=== PATIENT | female | born 1995 | race Caucasian/White ===

== ENCOUNTER 2021-06-26 06:09 | Emergency (ER) | payer OTHER ==
[2021-06-26 06:19] VITALS: BP 133/84
[2021-06-26] MEDS ORDERED: CLINDAMYCIN 150 MG CAPSULE PO STA (07:15)
--- NOTE | 2021-06-26 07:19 | ED Physician Documentation ---
PD HPI HEENT - Stated complaint Stated Complaint: TOOTH ACHE - Chief complaint Chief Complaint: Heent - History obtained from History obtained from: Patient - Additional information Additional information: Patient comes emergency department for chief complaint of dental pain for the last 3 days. Patient states that she has a tooth that has a crown and she thinks that this is the source of the pain. She is also noticed right maxillary facial swelling. No drainage into her mouth. She states the tooth in question is one of her maxillary molars on the right. She has noticed some gingival pain and swelling, also. She has been taking Tylenol at home but this has not been helping. Her last dose was at 2:00 this morning because she was having trouble sleeping, and she states that she took 2000 mg. She has not taken that large of a dose of any other time. No other complaints at this time. Review of Systems Ten Systems: 10 systems reviewed and negative Constitutional: reports: Reviewed and negative Eyes: reports: Reviewed and negative Ears: reports: Reviewed and negative Nose: reports: Reviewed and negative Throat: reports: Dental pain / toothache Cardiac: reports: Reviewed and negative Respiratory: reports: Reviewed and negative GI: reports: Reviewed and negative : reports: Reviewed and negative Skin: reports: Reviewed and negative Musculoskeletal: reports: Reviewed and negative Neurologic: reports: Reviewed and negative Psychiatric: reports: Reviewed and negative Endocrine: reports: Reviewed and negative Immunocompromised: reports: Reviewed and negative PD PAST MEDICAL HISTORY - Present Medications Home Medications: Ambulatory Orders Medication Instructions Recorded Confirmed HYDROcod/ACETAM 5/325 [[place] 5/325] 1 - 2 tablet PO Q6H PRN #14 tablet 06/26/21 clindamycin HCL [Clindamycin HCl] 300 mg PO Q6H #40 cap 06/26/21 - Allergies Allergies/Adverse Reactions: Allergies Allergy/AdvReac Type Severity Reaction Status Date / Time latex Allergy Rash Verified 06/26/21 06:15 Penicillins Allergy Rash Verified 06/26/21 06:15 PD ED PE NORMAL - Vitals Vital signs reviewed: Yes - General General: Alert and oriented X 3, No acute distress - HEENT HEENT: Atraumatic, PERRL, EOMI, Moist mucous membranes, Other (Mild edema of the maxillary area on the right, without mass or fluctuance. Tenderness/Swelling without drainage of the gingiva associated with right maxillary molar #1. No other tenderness or swelling intraorally.) - Neck Neck: Supple, no meningeal sign, No adenopathy - Respiratory Respiratory: No respiratory distress - Derm Derm: Normal color, Warm and dry, No rash - Extremities Extremities: No deformity - Neuro Neuro: Alert and oriented X 3 - Psych Psych: Normal mood, Normal affect Results - Vitals Vitals: Vital Signs - 24 hr 06/26/21 06:15 Temperature 36.7 C Heart Rate 73 Respiratory 16 Rate Blood Pressure 133/84 H O2 Saturation 100 Oxygen O2 Source Room air PD MEDICAL DECISION MAKING - ED course Complexity details: considered differential, d/w patient ED course: I discussed with the patient that we will treat her with antibiotics and some stronger pain medication, that it is very important that she follows up with a dentist as soon as possible for definitive management of this tooth. We have also discussed proper dosing for acetaminophen, and that it is very important that she does not take more than 1000 mg at a time. We have discussed the usual indications for return. Departure - Departure Disposition: 01 Home, Self Care Clinical Impression: Dental infection Condition: Stable Instructions: ED Tooth Pain Prescriptions: clindamycin HCL [Clindamycin HCl] 300 mg PO Q6H #40 cap HYDROcod/ACETAM 5/325 [[place] 5/325] 1 - 2 tablet PO Q6H PRN #14 tablet PRN Reason: Pain Comments: It is very important that you see a dentist as soon as possible. You may try [facility] at [phone], or you could try [facility] at [phone]. If you google "[facility]", there are a lot of other options that show up, as well. Please take the antibiotics every day, as directed. You may take the pain medication as needed. You should take this or acetaminophen but not both at the same time. If you take acetaminophen, you need to wait 6 hours before taking a dose of the Vicodin. If you take the Vicodin, you need to wait 4 hours before taking the acetaminophen by itself. You may take ibuprofen 600 mg every 6 hours with any of the above medications, as it is unrelated.
== END 2021-06-26 08:55 | disposition home or self-care (01) ==
LOC: ED 06:09
DX: K04.7 Periapical abscess without sinus (principal)
CPT/HCPCS: 99282; 99284; A9270

== ENCOUNTER 2021-11-02 10:35 | Emergency (ER) | payer OTHER ==
[2021-11-02 11:06] LABS: BILIRUBIN,URINE NEGATIVE (NEGATIVE); GLUCOSE, URINE (UA) NEGATIVE (NEGATIVE); KETONES,URINE (UA) NEGATIVE (NEGATIVE); LEUKOCYTE ESTERASE, URINE NEGATIVE (NEGATIVE); NITRITE,URINE NEGATIVE (NEGATIVE); OCCULT BLOOD,URINE LARGE (NEGATIVE); PROTEIN,URINE NEGATIVE (NEGATIVE); UROBILINOGEN,URINE 0.2 (NORMAL) E.U./dL (NORMAL)
[2021-11-02 11:15] LABS: CLARITY,URINE HAZY (CLEAR); HCG UR QUAL NEGATIVE
[2021-11-02 11:16] LABS: BACTERIA,URINE None Seen /HPF (None Seen); RBC,URINE TNTC /HPF (0-5); SQUAMOUS EPITHELIAL CELL,UR FEW Squamous (<= Few); WBC,URINE 0-3 /HPF (0-5)
[2021-11-02 11:37] LABS: BASOPHILS # (AUTO) 0.2 10^3/uL (0.0-0.1); BASOPHILS % (AUTO) 1.7 %; EOSINOPHILS # (AUTO) 0.3 10^3/uL (0.0-0.7); EOSINOPHILS % (AUTO) 2.3 %; HGB - HEMOGLOBIN 12.9 g/dL (12.0-16.0); LYMPHOCYTES # (AUTO) 3.2 10^3/uL (1.5-3.5); LYMPHOCYTES % (AUTO) 28.8 %; MEAN CORPUSCULAR HGB CONC 32.3 g/dL (32.0-36.0); MEAN PLATELET VOLUME 10.4 fL (7.9-10.8); MONOCYTES # (AUTO) 0.7 10^3/uL (0.0-1.0); MONOCYTES % (AUTO) 5.9 %; NEUTROPHILS # (AUTO) 6.7 10^3/uL (1.5-6.6); PLT - PLATELET COUNT 386 10^3/uL (130-450); RED CELL DISTRIBUTION WIDTH 13.3 % (12.0-15.0)
[2021-11-02 11:51] LABS: ALBUMIN 4.2 g/dL (3.2-5.5); ALBUMIN/GLOBULIN RATIO 1.1 (1.0-2.2); BILIRUBIN,TOTAL 0.4 mg/dL (0.2-1.0); CALCIUM 9.4 mg/dL (8.5-10.3); CREATININE 0.7 mg/dL (0.4-1.0); POTASSIUM 3.6 mmol/L (3.5-5.0)
--- NOTE | 2021-11-02 12:33 | ED Physician Documentation ---
History of Present Illness - Stated complaint Stated Complaint: FEMALE /ABD PX - Chief complaint Chief Complaint: Abd Pain - History obtained from History obtained from: Patient - History of Present Illness Pain level max: 1 Pain level now: 1 - Additonal information Additional information: Patient is a 26-year-old female who presents to the emergency department complaining of vaginal bleeding, heavy, for the past 18 days. Nothing seems to make it better or worse. She is not on any control. She states that she normally has regular periods. She states that she has had slightly irregular menses over the past few months however. She states that she goes through approximately 1 pad per hour, states that the blood is dark and thick. Review of Systems Constitutional: denies: Fever, Chills GI: denies: Nausea, Vomiting, Diarrhea Skin: denies: Rash Musculoskeletal: denies: Neck pain, Back pain Neurologic: denies: Headache PD PAST MEDICAL HISTORY - Past Medical History Cardiovascular: None Respiratory: None Neuro: None Endocrine/Autoimmune: None [employer]: None : Chronic bladder infection HEENT: None Psych: None Musculoskeletal: None Derm: None - Past Surgical History Past Surgical History: No - Present Medications Home Medications: Ambulatory Orders Medication Instructions Recorded Confirmed Medroxyprogesterone Acetate 10 mg PO DAILY #7 tablet 11/02/21 [Provera] - Allergies Allergies/Adverse Reactions: Allergies Allergy/AdvReac Type Severity Reaction Status Date / Time latex Allergy Rash Verified 11/02/21 10:42 Penicillins Allergy Rash Verified 11/02/21 10:42 - Social History Does the pt smoke?: No Smoking Status: Never smoker Does the pt drink ETOH?: No Does the pt have substance abuse?: No - Immunizations Immunizations are current?: Yes - POLST Patient has POLST: No PD ED PE NORMAL - Vitals Vital signs reviewed: Yes - General General: Alert and oriented X 3, No acute distress, Well developed/nourished - HEENT HEENT: PERRL, Moist mucous membranes - Neck Neck: Supple, no meningeal sign - Cardiac Cardiac: RRR, Strong equal pulses - Respiratory Respiratory: No respiratory distress, Clear bilaterally - Abdomen Abdomen: Soft, Non tender, Non distended - Female Female : Pt declined - Derm Derm: Warm and dry - Extremities Extremities: No edema - Neuro Neuro: Alert and oriented X 3 - Psych Psych: Normal mood, Normal affect Results - Vitals Vitals: Vital Signs - 24 hr 11/02/21 10:43 Temperature 37.0 C Heart Rate 90 Respiratory 18 Rate Blood Pressure 144/90 H O2 Saturation 98 Oxygen O2 Source Room air - Labs Labs: Laboratory Tests 11/02/21 11/02/21 11/02/21 10:53 11:31 11:31 WBC 11.0 H RBC 4.60 Hgb 12.9 Hct 40.0 MCV 87.0 MCH 28.0 MCHC 32.3 RDW 13.3 Plt Count 386 MPV 10.4 Neut # (Auto) 6.7 H Lymph # (Auto) 3.2 [place] # (Auto) 0.7 Eos # (Auto) 0.3 Baso # (Auto) 0.2 H Absolute Nucleated RBC 0.00 Nucleated RBC % 0.0 Sodium 138 Potassium 3.6 Chloride 102 Carbon Dioxide 25 Anion Gap 11.0 BUN 11 Creatinine 0.7 Estimated GFR (MDRD) 100 Glucose 102 H Calcium 9.4 Total Bilirubin 0.4 AST 21 ALT 13 Alkaline Phosphatase 62 Total Protein 8.0 Albumin 4.2 Globulin 3.8 Albumin/Globulin Ratio 1.1 Lipase 46 Urine Color YELLOW Urine Clarity HAZY Urine pH 6.0 Ur Specific [place] 1.025 Urine Protein NEGATIVE Urine Glucose (UA) NEGATIVE Urine Ketones NEGATIVE Urine Occult Blood LARGE H Urine Nitrite NEGATIVE Urine Bilirubin NEGATIVE Urine Urobilinogen 0.2 (NORMAL) Ur Leukocyte Esterase NEGATIVE Urine RBC TNTC H Urine WBC 0-3 Ur Squamous Epith Cells FEW Squamous Urine Bacteria None Seen Ur Microscopic Review INDICATED Urine Culture Comments NOT INDICATED Urine HCG, Qual NEGATIVE - Rads (name of study) Pelvic ultrasound Radiology: Prelim report reviewed, EMP read contemporaneously, See rad report (No acute abnormality) PD MEDICAL DECISION MAKING - ED course Complexity details: reviewed results, re-evaluated patient, considered differential, d/w patient, d/w risk management consultant ED course: 26-year-old female with dysfunctional uterine bleeding. Patient declines a pelvic examination here and states that she will follow up with her bacteriology teacher for this. She will return if she worsens. We discussed options for control of bleeding including tranexamic acid and Provera. We will start her on Provera 10 mg p.o. daily x7 days. Discussed the case with Dr. Raymond, Who recommends Provera. No acute findings on ultrasound or laboratory testing. Patient counseled regarding signs and symptoms for which I believe and urgent re- evaluation would be necessary. Patient with good understanding of and agreement to plan and is comfortable going home at this time This document was made in part using voice recognition software. While efforts are made to proofread this document, sound alike and grammatical errors may occur. Departure - Departure Disposition: Home, Self Care Clinical Impression: Dysfunctional uterine bleeding Condition: Good Instructions: ED Bleed Irregular Vaginal Follow-Up: [facility] [Provider Group] Prescriptions: Medroxyprogesterone Acetate [Provera] 10 mg PO DAILY #7 tablet Comments: It is important that you follow-up closely with gynecology for further evaluation including a pelvic exam, Pap smear and other screening tests. They may want to look at things such as your thyroid as well. Please return if you worsen. Your prescription was sent to [facility] in [place].
--- NOTE | 2021-11-02 14:22 | Ultrasound Report ---
PROCEDURE: Pelvic w/Transvag+Doppler Comp INDICATIONS: menorrhagia TECHNIQUE: Real-time scanning was performed of the pelvic organs, with image documentation. Additional endovagi nal scanning was necessary due to incomplete visualization of the adnexal and endometrial structures by transabdominal scanning. COMPARISON: None. FINDINGS: A small amount of free fluid in the pelvic cul-de-sac is most likely physiologic. Uterus: Uterus is normal in size at 8.2 x 3.7 x 4.6 cm. The uterus is retroverted. The myometrium i s homogeneous. The endometrium measures 4 mm in combined thickness. Ovaries: The right ovary measures 3.3 x 1.5 x 1.5 cm (3.9 cc). The left ovary measures 2.7 x 2.5 x 2 .2 cm (10.6 cc). Blood flow is demonstrated to each ovary. IMPRESSION: Pelvic ultrasound is within normal limits. Reviewed by: Ajit Rueda MD on 11/02/2021 2:21 PM PST Approved by: Ajit Rueda MD on 11/02/2021 2:21 PM PST Station ID: [id number]
[2021-11-02 14:24] VITALS: BP 135/85
== END 2021-11-02 14:25 | disposition home or self-care (01) ==
LOC: ED 10:35
DX: N93.8 Other specified abnormal uterine and vaginal bleeding (principal)
CPT/HCPCS: 36415; 80053; 81001; 81003; 81025; 83690; 85025; 87086; 93975; 99283; 99284